=== PATIENT | female | born 1990 | race Caucasian/White ===

== ENCOUNTER 2019-10-11 21:56 | Emergency (ER) | payer OTHER ==
[~2019-10-11] VITALS: Ht 162 cm; Wt 68.1 kg
[~2019-10-11 21:56] MED LIST: CPR500T PO; HYDR1TAB PO
[2019-10-11 23:10] LABS: BASOPHILS # (AUTO) 0.1 10^3/uL (0.0-0.1); BASOPHILS % (AUTO) 1 % (0-10); EOSINOPHILS # (AUTO) 0.2 10^3/uL (0.0-0.3); EOSINOPHILS % (AUTO) 2 % (0-10); HEMATOCRIT 42 % (35-52); HEMOGLOBIN 14.3 G/DL (11.5-16.0); LYMPHOCYTES % (AUTO) 35 % (12-44); MEAN CORPUSCULAR HEMOGLOBIN 32 PG (25-34); MEAN CORPUSCULAR HGB CONC 34 G/DL (32-36); MEAN CORPUSCULAR VOLUME 93 FL (80-99); MEAN PLATELET VOLUME 9.6 FL (7.4-10.4); MONOCYTES # (AUTO) 0.7 X 10^3 (0.0-1.0); MONOCYTES % (AUTO) 6 % (0-12); NEUTROPHILS # (AUTO) 6.3 X 10^3 (1.8-7.8); NEUTROPHILS % (AUTO) 56 % (42-75); PLATELET COUNT 347 10^3/uL (130-400); RED CELL DISTRIBUTION WIDTH 12.7 % (10.0-14.5); WHITE BLOOD COUNT 11.3 10^3/uL (4.3-11.0)
[2019-10-11 23:10] LABS: BILIRUBIN,URINE NEGATIVE (NEGATIVE); CLARITY,URINE CLEAR; COLOR,URINE YELLOW; GLUCOSE, URINE (UA) NEGATIVE (NEGATIVE); KETONES,URINE NEGATIVE (NEGATIVE); LEUKOCYTE ESTERASE ,URINE NEGATIVE (NEGATIVE); NITRITE,URINE NEGATIVE (NEGATIVE); PH,URINE 6.5 (5-9); PROTEIN,URINE NEGATIVE (NEGATIVE)
--- OUTSIDE RECORDS SUMMARY | 2019-10-11 23:12 | XMS REPORT ---
Author Author Tiff Estrada Doctor Organization [facility] Address Unknown Phone Unavailable Care Team Providers Care Mechanical Integrity Specialist Name Role Phone Migration, Doctor Unavailable Unavailable PROBLEMS Type Condition ICD9-CM Code PFD43-LB Code Onset Dates Condition S tatus SNOMED Code Problem Other and unspecified diseases of the oral soft tissues 52 8.9 Active 30279945 Problem Periapical abscess without sinus 522.5 Active 883548610 Problem Screening examination for pulmonary tuberculosis V74.1 Active 547914474 Problem Health examination of defined subpopulation V70.5 Active 786314647 Problem STATE HEP A (ADULT) DX V05.3 Active 550177051 ALLERGIES No Information ENCOUNTERS Encounter Location Date Diagnosis [facility] [id number] [place] [id number] 16 May, 2016 Physical exam, pre-employment Z02.1 ; Sc reening for tuberculosis Z11.1 and Encounter for immunization Z23 [facility] [id number] [place] [id number] July, Encounter for PPD test V74.1 [facility] [address] [id number] [address] [place] [address] 14 Jun, 2014 [facility] [address] [facility] [id number] [address] [place] [address] 13 Jun, 2014 [facility] [address] [id number] [place] [id number] 10 May, 2013 [facility] [address] [facility] [id number] [address] [place] [address] May, [facility] [address] [id number] [place] [id number] Feb, [facility] [address] [facility] [id number] [address] [place] [phone] Feb, [facility] [address] [id number] [place] [id number] Sep, [facility] [address] [id number] [place] [id number] Aug, [facility] [address] [id number] [place] [id number] Mar, [facility] [address] [id number] [address] [place] [phone] Feb, [facility] [address] [id number] [address] [place] [address] Feb, [facility] [address] [id number] [address] [place] [address] Dec, [facility] [address] [id number] [address] [place] [address] Dec, [facility] [address] [facility] [id number] [address] [place] [address] Dec, [facility] [address] [id number] [address] [place] [address] Dec, [facility] [address] [facility] [id number] [address] [place] [address] Dec, IMMUNIZATIONS No Known Immunizations SOCIAL HISTORY Never Assessed REASON FOR VISIT PLAN OF CARE VITAL SIGNS MEDICATIONS No Known Medications RESULTS No Results PROCEDURES No Known procedures INSTRUCTIONS MEDICATIONS ADMINISTERED No Known Medications MEDICAL (GENERAL) HISTORY Type Description Date Medical History anxiety Medical History depression Medical History thyroid disorder Surgical History oopherectomy Surgical History section
--- OUTSIDE RECORDS SUMMARY | 2019-10-11 23:12 | XMS REPORT ---
Author Author Tiff Mackenzie [facility] Address [address] [place], [place] [id number] Care Team Providers Care Regional Rehabilitation Director Name Role Phone Beni Mackenzie PCP Beni Mackenzie PreferredProvider Allergies and Adverse Reactions Name Reaction Notes Vantin Keflex SULFA (SULFONAMIDES) Remeron Plan of Treatment Not available. Medications Active Name Start Date Estimated Completion Date SIG Co mments Estarylla 0.25-35 mg-mcg oral tablet take 1 tablet by oral route once daily Xanax 1 mg oral tablet take 0.5- 1 tablet (0.5mg-1 mg) by oral route 3 times per day as needed. Valium 2 mg oral tablet 04/05/2019 take 1 t ablet (2 mg) by oral route 3 times per day Discontinued Name Start Date Discontinued Date SIG Comments Xanax 1 mg oral tablet 04/05/2019 take 1 ta blet (1 mg) by oral route 3 times per day as needed. Linzess 72 mcg oral capsule 04/05/2019 take 1 capsule (72 mcg) by oral route once daily on an empty stomach at least 30 minutes before 1st meal of the day Problem List Description Status Onset Depression Active Anxiety Active Vital Signs Date Time BP-Sys(mm[Hg] BP-Jessica(mm[Hg]) HR(bpm) RR(rpm) Temp WT HT HC BMI BSA BMI Percentile O2 Sat(%) 04/05/2019 11:40:00 AM 115 mm[Hg] 84 mm[Hg] 77 {beats}/min 20 rpm 99 F 158 lbs 64 in 27.1204 kg/m2 1.7989 m2 100 % Social History Name Description Comments Tobacco Current every day smoker History of Procedures Not available. Results Summary Not available. History Of Immunizations Not available. History of Past Illness Name Date of Onset Comments Anxiety Depression Depression Apr 05 2019 11:43AM Anxiety Apr 05 2019 11:43AM Payers Insurance Name Company Name Plan Name Plan Number Policy Number [employer] Group Number Start Date [facility] [id number] N/A History of Encounters Visit Date Visit Type Provider 04/05/[address] Beni Mackenzie DO
--- OUTSIDE RECORDS SUMMARY | 2019-10-11 23:12 | XMS REPORT ---
Author Author Tiff Estrada Doctor Organization [facility] Address Unknown Phone Unavailable Care Team Providers Care Administrator Pesticide Name Role Phone Migration, Doctor Unavailable Unavailable PROBLEMS Type Condition ICD9-CM Code [id number] Code Onset Dates Condition S tatus SNOMED Code Problem Other and unspecified diseases of the oral soft tissues 52 8.9 Active 17732671 Problem Periapical abscess without sinus 522.5 Active 145360205 Problem Screening examination for pulmonary tuberculosis V74.1 Active 826322416 Problem Health examination of defined subpopulation V70.5 Active 171301678 Problem STATE HEP A (ADULT) DX V05.3 Active 468186890 ALLERGIES No Information ENCOUNTERS Encounter Location Date Diagnosis [address] [id number] May, Physical exam, pre-employment Z02.1 ; Screening for tuberculosis Z11.1 and Encounter for immunization Z23 [address] [id number] July, Encounter for PPD test V74.1 [facility] [address] [address] 14 Jun, 2014 [facility] [address] [address] Jun, [address] [id number] May, [facility] [address] [address] May, [address] [id number] Feb, [facility] [address] [address] Feb, [address] [id number] Sep, [address] [id number] Aug, [facility] [address] [id number] [place] [id number] Mar, [facility] [address] [id number] [place] [address] Feb, [facility] [address] [id number] [place] [address] Feb, [facility] [address] [id number] [place] [address] Dec, [facility] [address] [id number] [place] [address] Dec, [facility] [address] [id number] [place] [address] Dec, [facility] [address] [id number] [place] [address] Dec, [facility] [address] [id number] [place] [address] Dec, IMMUNIZATIONS No Known Immunizations SOCIAL HISTORY Never Assessed REASON FOR VISIT PLAN OF CARE VITAL SIGNS MEDICATIONS No Known Medications RESULTS No Results PROCEDURES No Known procedures INSTRUCTIONS MEDICATIONS ADMINISTERED No Known Medications MEDICAL (GENERAL) HISTORY Type Description Date Medical History anxiety Medical History depression Medical History thyroid disorder Surgical History oopherectomy Surgical History section
--- OUTSIDE RECORDS SUMMARY | 2019-10-11 23:12 | XMS REPORT ---
Author Author Tiff MEJIA [facility] Address [address] [place] [address] Care Team Providers Care Caustic Preparer Name Role Phone SUZETTE MEJIA Unavailable PROBLEMS Type Condition ICD9-CM Code XED53-CF Code Onset Dates Condition S tatus SNOMED Code Problem Periapical abscess without sinus 522.5 Active 492892283 Problem Other and unspecified diseases of the oral soft tissues 52 8.9 Active 97133630 Problem Screening examination for pulmonary tuberculosis V74.1 Active 979898866 Problem STATE HEP A (ADULT) DX V05.3 Active 075300910 Problem Health examination of defined subpopulation V70.5 Active 746123074 ALLERGIES Substance Reaction Event Type Date Status SulfADIAZINE nausea and vomiting Drug Allergy May, Active SOCIAL HISTORY Never Assessed PLAN OF CARE Activity Details Follow Up prn Reason: VITAL SIGNS Height 64 in 2016-05-22 Weight 175.0 lbs 2016-05-22 Temperature 97.6 degrees Fahrenheit 2016-05-22 Heart Rate 90 bpm 2016-05-22 Respiratory Rate 18 2016-05-22 BMI 30.04 kg/m2 2016-05-22 Blood pressure systolic 102 mmHg 2016-05-22 Blood pressure diastolic 68 mmHg 2016-05-22 MEDICATIONS Medication Instructions Dosage Frequency Start Date End Date Duration S tatus Zyprexa 2.5 MG Orally Once a day 1 tablet 24h Active Sprintec 28 0.25-35 MG-MCG Orally Once a day 1 tablet 24h Active Clonazepam 1 MG Orally Once a day 1 tablet 24h Active Xanax 0.5 MG Orally PRN 1 tablet Active RESULTS Name Result Date Reference Range URINE DRUG SCREEN (IN HOUSE) 2016-05-22 Lot # [id number] Exp date 07/06/17 Control positive COCAINE negative AMPH negative MTD negative THC negative OPIATE negative BENZO positive PCP negative BAR negative OXY negative MAMP negative TCA negative BUP negative MDMA negative PROCEDURES Procedure Date Ordered Result Body Site TB INTRADERMAL 2016-05-22 N/A DRUG TEST PRSMV DIR OPT OBS May 22, 2016 TB INTRADERMAL TEST May 22, 2016 SINGLE IMMUNIZATION ADMIN May 22, 2016 TDAP (BOOSTRIX) May 22, 2016 IMMUNIZATIONS Vaccine Route Administration Date Status TDAP (BOOSTRIX) IM Intramuscular May 22, 2016 Administered MEDICAL (GENERAL) HISTORY Type Description Date Medical History anxiety Medical History depression Medical History thyroid disorder Surgical History oopherectomy Surgical History section
--- OUTSIDE RECORDS SUMMARY | 2019-10-11 23:12 | XMS REPORT ---
Author Author Tiff Mackenzie [facility] Address [address] [place], [place] [address] Care Team Providers Care Program Review Director Name Role Phone Beni Mackenzie PCP [...] Number [employer] Group Number [facility] [id number] N/A History of Encounters Visit Date Visit Type Provider 04/05/[address] Beni Mackenzie DO
--- OUTSIDE RECORDS SUMMARY | 2019-10-11 23:12 | XMS REPORT ---
Author Author Tiff Estrada Doctor Organization [facility] Address Unknown Phone Unavailable Care Team Providers Care Accounting Officer Name Role Phone Migration, Doctor Unavailable Unavailable PROBLEMS Type Condition ICD9-CM Code ILY01-JC Code Onset Dates Condition S tatus SNOMED Code Problem Other and unspecified diseases of the oral soft tissues 52 8.9 Active 85568864 Problem Periapical abscess without sinus 522.5 Active 789872748 Problem Screening examination for pulmonary tuberculosis V74.1 Active 860046478 Problem Health examination of defined subpopulation V70.5 Active 725936579 Problem STATE HEP A (ADULT) DX V05.3 Active 121160276 ALLERGIES No Information ENCOUNTERS Encounter Location Date Diagnosis [address] [id number] May, Physical exam, pre-employment Z02.1 ; Screening for tuberculosis Z11.1 and Encounter for immunization Z23 [address] [id number] July, Encounter for PPD test V74.1 [facility] [address] [address] 14 Jun, 2014 [facility] [address] [address] Jun, [address] [id number] May, [facility] [address] [address] May, [address] [id number] Feb, [facility] [address] [address] Feb, [address] [id number] Sep, [address] [id number] Aug, [facility] [address] [id number] [place] [id number] Mar, [facility] [address] [facility]75[address] [place] [address] Feb, [facility] [address] [facility] [place] [address] Feb, [facility] [address] [id number] [place] [address] Dec, [facility] [address] [id number] [place] [address] Dec, [facility] [address] [id number] [place] [address] Dec, [facility] [address] [facility] [place] [address] Dec, [facility] [address] [facility] [place] [address] Dec, IMMUNIZATIONS No Known Immunizations SOCIAL HISTORY Never Assessed REASON FOR VISIT PLAN OF CARE VITAL SIGNS MEDICATIONS No Known Medications RESULTS No Results PROCEDURES Procedure Date Ordered Result Body Site TB INTRADERMAL TEST May 16, 2013 INSTRUCTIONS MEDICATIONS ADMINISTERED No Known Medications MEDICAL (GENERAL) HISTORY Type Description Date Medical History anxiety Medical History depression Medical History thyroid disorder Surgical History oopherectomy Surgical History section
--- OUTSIDE RECORDS SUMMARY | 2019-10-11 23:12 | XMS REPORT ---
Author Author Tiff Estrada Doctor Organization [facility] Address Unknown Phone Unavailable Care Team Providers Care Range Scientist Name Role Phone Migration, Doctor Unavailable Unavailable PROBLEMS Type Condition ICD9-CM Code VFP77-PX Code Onset Dates Condition S tatus SNOMED Code Problem Other and unspecified diseases of the oral soft tissues 52 8.9 Active 28096676 Problem Periapical abscess without sinus 522.5 Active 158054163 Problem Screening examination for pulmonary tuberculosis V74.1 Active 866502211 Problem Health examination of defined subpopulation V70.5 Active 341289166 Problem STATE HEP A (ADULT) DX V05.3 Active 697796399 ALLERGIES No Information ENCOUNTERS Encounter Location Date Diagnosis [facility] [id number] [place] [id number] 16 May, 2016 Physical exam, pre-employment Z02.1 ; Sc reening for tuberculosis Z11.1 and Encounter for immunization Z23 [facility] [id number] [place] [id number] July, Encounter for PPD test V74.1 [facility] [address] [id number] [address] [place] [address] 14 Jun, 2014 [facility] [address] [facility] [id number] [address] [place] [address] 13 Jun, 2014 [facility] [address] [id number] [place] [id number] 10 May, 2013 [facility] [address] [facility] [id number] [address] [place] [address] May, [facility] [address] [facility] [id number] [place] [id number] Feb, [facility] [address] [facility] [id number] [address] [place] [address] Feb, [facility] [address] [id number] [place] [id number] Sep, [facility] [address] [id number] [place] [id number] Aug, [facility] [address] [id number] [place] [id number] Mar, [facility] [address] [id number] [address] [place] [address] Feb, [facility] [address] [id number] [address] [place] [address] Feb, [facility] [address] [id number] [address] [place] [address] Dec, [facility] [address] [id number] [address] [place] [address] Dec, [facility] [address] [facility] [id number] [address] [place] [address] Dec, [facility] [address] [id number] [address] [place] [address] Dec, [facility] [address] [id number] [address] [place] [address] Dec, IMMUNIZATIONS No Known Immunizations SOCIAL HISTORY Never Assessed REASON FOR VISIT [facility] PLAN OF CARE VITAL SIGNS MEDICATIONS No Known Medications RESULTS No Results PROCEDURES No Known procedures INSTRUCTIONS MEDICATIONS ADMINISTERED No Known Medications MEDICAL (GENERAL) HISTORY Type Description Date Medical History anxiety Medical History depression Medical History thyroid disorder Surgical History oopherectomy Surgical History section
--- OUTSIDE RECORDS SUMMARY | 2019-10-11 23:12 | XMS REPORT ---
Author Author Tiff TAYLOR [address] Address [address] [place] [address] Care Team Providers Care Ammonia Refrigeration Worker Name Role Phone CHRISTEN TAYLOR Unavailable PROBLEMS Type Condition ICD9-CM Code ATS50-WV Code Onset Dates Condition S tatus SNOMED Code Problem Other and unspecified diseases of the oral soft tissues 52 8.9 Active 84201998 Problem Periapical abscess without sinus 522.5 Active 906770967 Problem Screening examination for pulmonary tuberculosis V74.1 Active 186979020 Problem Health examination of defined subpopulation V70.5 Active 273918814 Problem STATE HEP A (ADULT) DX V05.3 Active 711133759 ALLERGIES No Information ENCOUNTERS Encounter Location Date Diagnosis [facility] [id number] [place] [id number] May, Physical exam, pre-employment Z02.1 ; Sc reening for tuberculosis Z11.1 and Encounter for immunization Z23 [facility] [id number] [place] [id number] July, Encounter for PPD test V74.1 [facility] [address] [id number] [address] [place] [address] 14 Jun, 2014 [facility] [address] [id number] [address] [place] [address] 13 Jun, 2014 [facility] [id number] [place] [id number] 10 May, 2013 [facility] [address] [id number] [address] [place] [address] May, [facility] [id number] [place] [id number] Feb, [facility] [address] [id number] [address] [place] [address] Feb, [facility] [address] [id number] [place], [place] [id number] Sep, [facility] [address] [id number] [place] [id number] Aug, [facility] [address] [id number] [place], [place] [id number] Mar, [facility] [address] [id number] [address] [place] [address] Feb, [facility] [address] [id number] [address] [place] [address] Feb, [facility] [address] [id number] [address] [place] [address] Dec, [facility] [address] [id number] [address] [place] [address] Dec, [facility] [address] [id number] [address] [place] [address] Dec, [facility] [address] [id number] [address] [place] [address] Dec, [facility] [address] [id number] [address] [place] [address] Dec, IMMUNIZATIONS No Known Immunizations SOCIAL HISTORY Never Assessed REASON FOR VISIT PLAN OF CARE VITAL SIGNS Height 66 in 2012-08-13 Weight 192 lbs 2012-08-13 Temperature 99.6 degrees Fahrenheit 2012-08-13 Heart Rate 68 bpm 2012-08-13 Respiratory Rate 16 2012-08-13 Blood pressure systolic 120 mmHg 2012-08-13 Blood pressure diastolic 80 mmHg 2012-08-13 MEDICATIONS No Known Medications RESULTS No Results PROCEDURES Procedure Date Ordered Result Body Site TB INTRADERMAL TEST August 13, 2012 DRUG SCREEN, QUALITATE/MULTI August 13, 2012 INSTRUCTIONS MEDICATIONS ADMINISTERED No Known Medications MEDICAL (GENERAL) HISTORY Type Description Date Medical History anxiety Medical History depression Medical History thyroid disorder Surgical History oopherectomy Surgical History section
--- OUTSIDE RECORDS SUMMARY | 2019-10-11 23:12 | XMS REPORT ---
Author Author Tiff Estrada Doctor Organization [facility] Address Unknown Phone Unavailable Care Team Providers Care Soil Sort Worker Name Role Phone Migration, Doctor Unavailable Unavailable PROBLEMS Type Condition ICD9-CM Code EWJ27-TX Code Onset Dates Condition S tatus SNOMED Code Problem Other and unspecified diseases of the oral soft tissues 52 8.9 Active 50937188 Problem Periapical abscess without sinus 522.5 Active 017219941 Problem Screening examination for pulmonary tuberculosis V74.1 Active 825592522 Problem Health examination of defined subpopulation V70.5 Active 163000958 Problem STATE HEP A (ADULT) DX V05.3 Active 983788286 ALLERGIES No Information ENCOUNTERS Encounter Location Date Diagnosis [facility] [id number] [place] [id number] 16 May, 2016 Physical exam, pre-employment Z02.1 ; Sc reening for tuberculosis Z11.1 and Encounter for immunization Z23 [facility] [id number] [place] [id number] July, Encounter for PPD test V74.1 [facility] [address] [id number] [address] [place] [address] 14 Jun, 2014 [facility] [address] [facility] [id number] [address] [place] [address] 13 Jun, 2014 [facility] [address] [id number] [place] [id number] 10 May, 2013 [facility] [address] [facility] [id number] [address] [place] [address] May, [facility] [address] [facility] [id number] [place] [id number] Feb, [facility] [address] [facility] [id number] [address] [place] [address] Feb, [facility] [address] [id number] [place] [id number] Sep, [facility] [address] [id number] [place] [id number] Aug, [facility] [address] [id number] [place] [id number] Mar, [facility] [address] [id number] [address] [place] [address] Feb, [facility] [address] [id number] [address] [place] [address] Feb, [facility] [address] [id number] [address] [place] [address] Dec, [facility] [address] [id number] [address] [place] [address] Dec, [facility] [address] [id number] [address] [place] [address] Dec, [facility] [address] [id number] [address] [place] [address] Dec, [facility] [address] [id number] [address] [place] [address] Dec, IMMUNIZATIONS No Known Immunizations SOCIAL HISTORY Never Assessed REASON FOR VISIT [facility] PLAN OF CARE VITAL SIGNS MEDICATIONS Medication Instructions Dosage Frequency Start Date End Date Duration S tatus Amoxicillin 500 mg SI cap(s) orally 2 times a day for 10 day(s) Mar, Active RESULTS No Results PROCEDURES No Known procedures INSTRUCTIONS MEDICATIONS ADMINISTERED No Known Medications MEDICAL (GENERAL) HISTORY Type Description Date Medical History anxiety Medical History depression Medical History thyroid disorder Surgical History oopherectomy Surgical History section
--- OUTSIDE RECORDS SUMMARY | 2019-10-11 23:12 | XMS REPORT ---
Author Author Tiff Mackenzie [facility] Address [address] [place], [place] [id number] Care Team Providers Care Manager Category Name Role Phone Beni Mackenzie PCP Beni [...] Number Anders cy Group Number Start Date [facility] [id number] N/A History of Encounters Visit Date Visit Type Provider 04/05/[address] Beni Mackenzie DO
--- OUTSIDE RECORDS SUMMARY | 2019-10-11 23:12 | XMS REPORT | Continuity of Care Document ---
Author Organization Unknown Address Unknown Phone Unavailable Allergies Active Description Code Type Severity Reaction Onset Reported/Identified Relationship to Patient Clinical Status Yes Keflex Drug Allergy N/A N/A 12/16/2010 Medications There is no data. Problems Date Dx Coded Attending Type Code Diagnosis Diagnosed By 12/16/2010 599.0 URIN DANNY TRACT INFECTION 12/16/2010 DIA LAURENT MD 599. 0 URINARY TRACT INFECTION 12/16/2010 CHRISTEN TAYLOR APRN 599.0 URINARY TRACT INFECTION 12/19/2010 599.72 MELODY ROSCOPIC HEMATURIA 12/19/2010 724.5 BACK ACHE UNSPECIFIED 12/19/2010 DIA LAURENT MD 599. 72 MICROSCOPIC HEMATURIA 12/19/2010 DIA LAURENT MD 724. 5 BACKACHE UNSPECIFIED 12/19/2010 CHRISTEN TAYLOR APRN 599.72 MICROSCOPIC HEMATURIA 12/19/2010 CHRISTEN TYALOR APRN 724.5 BACKACHE UNSPECIFIED 12/27/2010 592.9 URIN DANNY CALCULUS UNSPECIFIED 12/27/2010 620.2 OTHE R AND UNSPECIFIED OVARIAN CYST 12/27/2010 DIA LAURENT MD 592. 9 URINARY CALCULUS UNSPECIFIED 12/27/2010 DIA LAURENT MD 620. 2 OTHER AND UNSPECIFIED OVARIAN CYST 12/27/2010 CHRISTEN TAYLOR APRN 592.9 URINARY CALCULUS UNSPECIFIED 12/27/2010 CHRISTEN TAYLOR APRN 620.2 OTHER AND UNSPECIFIED OVARIAN CYST 03/11/2011 522.5 COLLEEN APICAL ABSCESS WITHOUT SINUS 03/11/2011 528.9 MOUT H PAIN 03/11/2011 DIA LAURENT MD 522. 5 PERIAPICAL ABSCESS WITHOUT SINUS 03/11/2011 DIA LAURENT MD 528. 9 MOUTH PAIN 03/11/2011 CHRISTEN TAYLOR APRN 522.5 PERIAPICAL ABSCESS WITHOUT SINUS 03/11/2011 CHRISTEN TAYLOR APRN 528.9 MOUTH PAIN 08/13/2012 V70.5 PREEMPLOYMENT/PRESCHOOL EXAM 08/13/2012 DIA LAURENT MD V70. 5 PREEMPLOYMENT/PRESCHOOL EXAM 08/13/2012 CHRISTEN TAYLOR APRN V70.5 PREEMPLOYMENT/PRESCHOOL EXAM 09/15/2012 DIA LAURENT MD V05. 3 HEP B (ADULT) DX 09/15/2012 CHRISTEN TAYLOR APRN V05.3 HEP B (ADULT) DX 05/16/2013 CHRISTEN TAYLOR APRN V74.1 SCREENING EXAMINATION FOR PULMONARY TUBERCULOSIS Procedures Code [place] [address] URIN E DRUG SCREEN (IN-HOUSE) 08/13/2012 73322 TB T EST INTRADERMAL 08/13/2012 00961 TB T EST INTRADERMAL 05/16/2013 Results There is no data. Encounters ACCT No. Visit Date/Time Discharge Status Pt. Type Provider Facility Loc./Unit Complaint [id number] 04/05/2019 12:13:40 04/05/2019 23:59: 59 CLS Outpatient Beni Mackenzie [id number] 05/16/2013 16:30:00 05/16/2013 23:59: 59 CLS Outpatient CHRISTEN TAYLOR APRN [id number] 02/21/2013 16:40:00 02/21/2013 23:59: 59 CLS Outpatient DIA LAURENT MD [id number] 08/13/2012 15:22:00 Document Registration [id number] 10/11/2019 22:01:[address] Emergency TIFF HARVEY DO [facility] CONFUSION,NAUSEA,DISSYNESS,B KSUH ACHES
[2019-10-11 23:16] LABS: BACTERIA,URINE MODERATE /HPF
[2019-10-11 23:22] LABS: AMPHETAMINE SCREEN, URINE NEGATIVE (NEGATIVE); BARBITURATE SCREEN URINE NEGATIVE (NEGATIVE); BENZODIAZEPINES SCREEN URINE POSITIVE (NEGATIVE); CANNABINOID SCREEN, URINE NEGATIVE (NEGATIVE); COCAINE SCREEN URINE NEGATIVE (NEGATIVE); METHADONE STAT NEGATIVE (NEGATIVE); METHAMPHETAMINE SCREEN URINE S NEGATIVE (NEGATIVE); OPIATE SCREEN URINE NEGATIVE (NEGATIVE); OXYCODONE STAT NEGATIVE (NEGATIVE); PROPOXYPHENE STAT NEGATIVE (NEGATIVE); TRICYCLIC ANTIDEPRESSANTS SCRE NEGATIVE (NEGATIVE)
[2019-10-11 23:36] LABS: INR 0.9 (0.8-1.4); PROTHROMBIN TIME PATIENT 12.5 SEC (12.2-14.7)
[2019-10-11 23:38] LABS: ALANINE AMINOTRANSFERASE 13 U/L (0-55); ALBUMIN 4.8 GM/DL (3.2-4.5); ALKALINE PHOSPHATASE 64 U/L (40-136); BILIRUBIN,TOTAL 0.7 MG/DL (0.1-1.0); BUN/CREATININE RATIO 13; CALCIUM 9.6 MG/DL (8.5-10.1); CARBON DIOXIDE 23 MMOL/L (21-32); CHLORIDE 104 MMOL/L (98-107); CREATINE KINASE 58 U/L (29-168); CREATININE SERUM 0.83 MG/DL (0.60-1.30); GFR ESTIMATED > 60; GLUCOSE 87 MG/DL (70-105); POTASSIUM 3.8 MMOL/L (3.6-5.0); SODIUM 140 MMOL/L (135-145)
[2019-10-11 23:58] LABS: CREATINE KINASE MB 0.5 NG/ML (<6.6); TSH (THYROID ANALYZER) 3.25 UIU/ML (0.35-4.94)
--- NOTE | 2019-10-12 00:57 | ED General ---
General Chief Complaint: General Problems/Pain Stated Complaint: CONFUSION,NAUSEA,DISSYNESS,BODY ACHES Nursing Triage Note: pt has felt dizzy and lighthead off and on for 3 weeks. she reports anxiety and some CP , went to [facility] and given omeperazole for gastritis. Pt also reports some increased stressors in her life. Nursing Sepsis Screen: No Definite Risk Allergies and Home Medications Allergies Coded Allergies: Cephalexin Monohydrate (Unverified Adverse Reaction, Intermediate, HIVES, 05/05/12) Uncoded Allergies: COTRIM (Adverse Reaction, Intermediate, VOMITING, 05/05/12) Home Medications Ciprofloxacin 500 Mg Tablet, 1 TAB PO BID, (Reported) Hydrocodone Bit/Acetaminophen 1 Each Tablet, 1-2 EACH PO Q4HR PRN Prescribed by: VIRI CHIN on 12/20/102201 Past Vmigjmc-Kjhdhh-Xfnsls Hx Patient Social History Alcohol Use: Occasionally Uses Recreational Drug Use: No Smoking Status: Former Smoker Former Smoker, Quit: Sep 20, 2019 2nd Hand Smoke Exposure: Yes Recent Foreign Travel: No Contact w/Someone Who Travel: No Recent Infectious Disease Expo: No Recent Hopitalizations: Yes (seen at [facility] for gastroenteritis) Physical Abuse: No Sexual Abuse: No Mistreated: No Fear: No Immunizations Up To Date Tetanus Booster (TDap): Unknown Seasonal Allergies Seasonal Allergies: No Past Medical History Surgeries: Yes Abdominal, Breast, Section, Tubal Ligation Respiratory: No Cardiac: No Neurological: No Genitourinary: No Gastrointestinal: No Musculoskeletal: No Endocrine: No HEENT: No Cancer: No Psychosocial: Yes Anxiety, Depression Integumentary: No Blood Disorders: No Physical Exam Vital Signs Vital Signs - First Documented 10/11/19 22:50 Temp 36.9 Pulse 96 Resp 18 B/P (MAP) 139/87 (104) Capillary Refill : Less Than 3 Seconds Height, Weight, BMI Height: '" Weight: lbs. oz. kg; 25.00 BMI Method: Progress/Results/Core Measures Suspected Sepsis Recent Fever Within 48 Hours: No Infection Criteria Present: None New/Unexplained Altered Menta: Yes Sepsis Screen: No Definite Risk SIRS Temperature: Pulse: 96 Respiratory Rate: 18 Laboratory Tests 10/11/19 22:55: White Blood Count 11.3H Blood Pressure 139 /87 Mean: 104 Laboratory Tests 10/11/19 22:55: Creatinine 0.83, INR Comment 0.9, Platelet Count 347, Total Bilirubin 0.7 Results/Orders Lab Results Laboratory Tests Test 10/11/19 22:55 10/11/19 23:00 Range/Units White Blood Count 11.3 H 4.3-11.0 10^3/uL Red Blood Count 4.51 4.35-5.85 10^6/uL Hemoglobin 14.3 11.5-16.0 G/DL Hematocrit 42 35-52 % Mean Corpuscular Volume 93 80-99 FL Mean Corpuscular Hemoglobin 32 25-34 PG Mean Corpuscular Hemoglobin Concent 34 32-36 G/DL Red Cell Distribution Width 12.7 10.0-14.5 % Platelet Count 347 130-400 10^3/uL Mean Platelet Volume 9.6 7.4-10.4 FL Neutrophils (%) (Auto) 56 42-75 % Lymphocytes (%) (Auto) 35 12-44 % Monocytes (%) (Auto) 6 0-12 % Eosinophils (%) (Auto) 2 0-10 % Basophils (%) (Auto) 1 0-10 % Neutrophils # (Auto) 6.3 1.8-7.8 X 10^3 Lymphocytes # (Auto) 4.0 1.0-4.0 X 10^3 Monocytes # (Auto) 0.7 0.0-1.0 X 10^3 Eosinophils # (Auto) 0.2 0.0-0.3 10^3/uL Basophils # (Auto) 0.1 0.0-0.1 10^3/uL Prothrombin Time 12.5 12.2-14.7 SEC INR Comment 0.9 0.8-1.4 Activated Partial Thromboplast Time 31 24-35 SEC Sodium Level 140 135-145 MMOL/L Potassium Level 3.8 3.6-5.0 MMOL/L Chloride Level 104 98-107 MMOL/L Carbon Dioxide Level 23 21-32 MMOL/L Anion Gap 13 5-14 MMOL/L Blood Urea Nitrogen 11 7-18 MG/DL Creatinine 0.83 0.60-1.30 MG/DL Estimat Glomerular Filtration Rate > 60 BUN/Creatinine Ratio 13 Glucose Level 87 70-105 MG/DL Calcium Level 9.6 8.5-10.1 MG/DL Corrected Calcium 8.5-10.1 MG/DL Magnesium Level 2.0 1.6-2.4 MG/DL Total Bilirubin 0.7 0.1-1.0 MG/DL Aspartate Amino Transf (AST/SGOT) 15 5-34 U/L Alanine Aminotransferase (ALT/SGPT) 13 0-55 U/L Alkaline Phosphatase 64 40-136 U/L Total Creatine Kinase 58 29-168 U/L Creatine Kinase MB 0.5 <6.6 NG/ML Myoglobin 24.9 10.0-92.0 NG/ML Troponin I < 0.028 <0.028 NG/ML Total Protein 8.0 6.4-8.2 GM/DL Albumin 4.8 H 3.2-4.5 GM/DL TSH [place] Testing 3.25 0.35-4.94 UIU/ML Serum Test, Qualitative NEGATIVE NEGATIVE Serum Alcohol < 10 <10 MG/DL Urine Color YELLOW Urine Clarity CLEAR Urine pH 6.5 5-9 Urine Specific Comfort 1.010 L 1.016-1.022 Urine Protein NEGATIVE NEGATIVE Urine Glucose (UA) NEGATIVE NEGATIVE Urine Ketones NEGATIVE NEGATIVE Urine Nitrite NEGATIVE NEGATIVE Urine Bilirubin NEGATIVE NEGATIVE Urine Urobilinogen 0.2 < = 1.0 MG/DL Urine Leukocyte Esterase NEGATIVE NEGATIVE Urine RBC (Auto) 2+ H NEGATIVE Urine RBC 2-5 H /HPF Urine WBC 2-5 /HPF Urine Squamous Epithelial Cells 5-10 /HPF Urine Crystals NONE /LPF Urine Bacteria MODERATE H /HPF Urine Casts NONE /LPF Urine Mucus NEGATIVE /LPF Urine Culture Indicated YES Urine Opiates Screen NEGATIVE NEGATIVE Urine Oxycodone Screen NEGATIVE NEGATIVE Urine Methadone Screen NEGATIVE NEGATIVE Urine Propoxyphene Screen NEGATIVE NEGATIVE Urine Barbiturates Screen NEGATIVE NEGATIVE Ur Tricyclic Antidepressants Screen NEGATIVE NEGATIVE Urine Phencyclidine Screen NEGATIVE NEGATIVE Urine Amphetamines Screen NEGATIVE NEGATIVE Urine Methamphetamines Screen NEGATIVE NEGATIVE Urine Benzodiazepines Screen POSITIVE H NEGATIVE Urine Cocaine Screen NEGATIVE NEGATIVE Urine Cannabinoids Screen NEGATIVE NEGATIVE My Orders Orders - HELEN HARVEY DO Ed Iv/Invasive Line Start (10/11/19 22:53) Ekg Tracing (10/11/19 22:53) Monitor-Rhythm Ecg Trace Only (10/11/19 22:53) Alcohol (10/11/19 22:53) Cbc With Automated Diff (10/11/19 22:53) Comprehensive Metabolic Panel (10/11/19 22:53) Creatine Kinase (10/11/19 22:53) Creatine Kinase Mb (10/11/19 22:53) Drug Screen Stat (Urine) (10/11/19 22:53) Hcg,Qualitative Serum (10/11/19 22:53) Magnesium (10/11/19 22:53) Protime With Inr (10/11/19 22:53) Partial Thromboplastin Time (10/11/19 22:53) Thyroid Analyzer (10/11/19 22:53) Ua Culture If Indicated (10/11/19 22:53) Myoglobin Serum (10/11/19 22:53) Troponin I (10/11/19 22:53) Urine Culture (10/11/19 23:00) Hcg,Qualitative Serum (10/11/19 23:28) Ct Head/Cervical Spine Wo (10/12/19 00:01) Vital Signs/I&O 10/11/19 22:50 Temp 36.9 Pulse 96 Resp 18 B/P (MAP) 139/87 (104) Capillary Refill : Less Than 3 Seconds Blood Pressure Mean: 104 Departure Impression Primary Impression: Anxiety Additional Impression: UTI (urinary tract infection) Disposition: HOME, SELF-CARE Condition: Improved Departure-Patient Inst. Patient Instructions: Urinary Tract Infection, Adult (DC), Anxiety, Adult (DC) Add. Discharge Instructions: HOME, REST TAKE YOUR XANAX 1-2 TIMES A DAY EVERY DAY FOLLOW UP WITH YOUR [facility] REGARDING SPIRONOLACTONE FOLLOW UP WITH YOUR FAMILY THIS WEEK FOR FURTHER CARE REGARDING ANXIETY AND RECHECK UTI All discharge instructions reviewed with patient and/or family. Voiced understanding. Scripts Nitrofurantoin Monohyd/M-Cryst (Macrobid 100 mg Capsule) 100 Mg Capsule 1 TAB PO BID, #20 CAP Prov: HELEN HARVEY DO 10/12/19 HELEN HARVEY DO Oct 12, 2019 00:56
[2019-10-12] MEDS ORDERED: NITR-65 PO (01:07)
[2019-10-12 01:40] VITALS: BP 121/75
--- NOTE | 2019-10-12 07:01 | Diagnostic Imaging Report ---
PROCEDURE: CT head and CT cervical spine without contrast. TECHNIQUE: Multiple contiguous axial images were obtained through the brain and cervical spine without the use of intravenous contrast. Sagittal and coronal reformations through the cervical spine were then performed. Auto Exposure Controls were utilized during the CT exam to meet ALARA standards for radiation dose reduction. INDICATION: Dizziness. Lightheaded. The ventricles and cortical gyral pattern are normal. There is no intracranial hemorrhage or mass effect. No extra-axial fluid collection. Basal cisterns are clear. Mastoid air cells and paranasal sinuses are clear. No evidence of calvarial fracture. IMPRESSION: Negative CT head without contrast. CT cervical spine: Good alignment of the vertebral bodies. Facets show good alignment. There are no fractures. No significant degenerative changes are demonstrated. Surrounding soft tissues are normal. IMPRESSION: Negative CT cervical spine. Dictated by: Dictated on workstation # [id number]
== END 2019-10-12 01:42 | disposition home or self-care (01) ==
LOC: EDUNIT# 21:56 → ER 22:01
DX: F41.9 Anxiety disorder, unspecified (principal); N39.0 Urinary tract infection, site not specified; Z88.1 Allergy status to other antibiotic agents; Z87.891 Personal history of nicotine dependence; Z98.51 Tubal ligation status
CPT/HCPCS: 70450; 72125; 80053; 80306; 81000; 82550; 82553; 83735; 83874; 84443; 84484; 84703; 85025; 85610; 85730; 87088; 93005; 93041; 99284; G0480; 36415; 80320

== ENCOUNTER 2022-10-21 12:26 | Emergency (ER) | payer OTHER ==
[~2022-10-21] VITALS: Ht 162 cm; Wt 71.0 kg
[~2022-10-21 12:26] MED LIST changes: +NITR-65 PO
[2022-10-21] MEDS ORDERED: VYVANSE (12:47)
[2022-10-21] MEDS ORDERED: MELOXICAM (12:48)
--- NOTE | 2022-10-21 12:54 | ED General ---
General Chief Complaint: Allergic Reaction Stated Complaint: ALLERGIC REACTION Nursing Triage Note: PT STATES HIVES YESTERDAY AFTERNOON NO KNOWN CAUSE, ITCHING LAST NIGHT, AUTOIMMUNE ISSUES, DIFFICULTY SWALLOWING WAS SEEN AT [facility] WITH NO MEDS GIVEN PT CAME HERE FOR SECOND OPINION. PEPCID TAKEN TODAY AT HOME AND BENADRYL YESTERDAY Source of Information: Patient Exam Limitations: No Limitations History of Present Illness Date Seen by Provider: Oct 21, 2022 Time Seen by Provider: 12:36 Allergies and Home Medications Allergies Coded Allergies: Sulfa (Sulfonamide Antibiotics) (Verified Allergy, Unknown, 10/21/22) cefpodoxime (Verified Allergy, Unknown, 10/21/22) doxycycline (Verified Allergy, Unknown, 10/21/22) latex (Verified Allergy, Unknown, 10/21/22) mirtazapine (Verified Allergy, Unknown, 10/21/22) Cephalexin Monohydrate (Unverified Adverse Reaction, Intermediate, HIVES, 05/05/12) Uncoded Allergies: COTRIM (Adverse Reaction, Intermediate, VOMITING, 05/05/12) Patient Home Medication List Ciprofloxacin (Cipro) 500 Mg Tablet, 1 TAB PO BID, (Reported) Entered as Reported by: TIEN SMITH on 12/20/10 1950 Hydrocodone Bit/Acetaminophen (Vicodin 5-500 Tablet) 1 Each Tablet, 1-2 EACH PO Q4HR PRN Prescribed by: VIRI CHIN on 12/20/102201 Nitrofurantoin Monohyd/M-Cryst (Macrobid 100 mg Capsule) 100 Mg Capsule, 1 TAB PO BID Prescribed by: HELEN HARVEY on 10/12/19 0107 [Meloxicam] , (Reported) Entered as Reported by: RENITA JIMENEZ on 10/21/22 1248 Last Action: New Order [Vyvanse] , (Reported) Entered as Reported by: RENITA JIMENEZ on 10/21/22 1247 Last Action: New Order Past Qpqelwa-Icqexi-Aevztn Hx Patient Social History Tobacco Use?: Yes Tobacco type used: Cigarettes Smoking Status: Current Everyday Smoker Substance use?: No Alcohol Use?: Yes Alcohol Frequency: Rarely Immunizations Up To Date Tetanus Booster (TDap): Unknown Seasonal Allergies Seasonal Allergies: No Past Medical History Surgery/Hospitalization HX: C SECTION, BREAST IMPLANTS AND REMOVAL, PARTIAL HYST Surgeries: Yes Abdominal, Breast, Section, Tubal Ligation Respiratory: No Cardiac: No Neurological: No Genitourinary: No Gastrointestinal: No Musculoskeletal: No Endocrine: No HEENT: No Cancer: No Psychosocial: Yes Anxiety, Depression Integumentary: No Blood Disorders: No Physical Exam Vital Signs Vital Signs - First Documented 10/21/22 12:37 Temp 36.3 Pulse 84 Resp 20 B/P (MAP) 132/89 (103) Pulse Ox 100 O2 Delivery Room Air Capillary Refill : Less Than 3 Seconds Height, Weight, BMI Height: '" Weight: lbs. oz. kg; 27.00 BMI Method: Progress/Results/Core Measures Suspected Sepsis SIRS Temperature: Pulse: 84 Respiratory Rate: 20 Laboratory Tests 10/21/22 12:55: White Blood Count 8.7 Blood Pressure 132 /89 Mean: 103 Laboratory Tests 10/21/22 12:55: Creatinine 0.73, Platelet Count 337, Total Bilirubin 0.5 Results/Orders Lab Results Laboratory Tests Test 10/21/22 12:55 Range/Units White Blood Count 8.7 4.3-11.0 10^3/uL Red Blood Count 4.30 3.80-5.11 10^6/uL Hemoglobin 13.7 11.5-16.0 g/dL Hematocrit 41 35-52 % Mean Corpuscular Volume 94 80-99 fL Mean Corpuscular Hemoglobin 32 25-34 pg Mean Corpuscular Hemoglobin Concent 34 32-36 g/dL Red Cell Distribution Width 12.6 10.0-14.5 % Platelet Count 337 130-400 10^3/uL Mean Platelet Volume 9.4 9.0-12.2 fL Immature Granulocyte % (Auto) 0 % Neutrophils (%) (Auto) 64 42-75 % Lymphocytes (%) (Auto) 29 12-44 % Monocytes (%) (Auto) 5 0-12 % Eosinophils (%) (Auto) 1 0-10 % Basophils (%) (Auto) 1 0-10 % Neutrophils # (Auto) 5.6 1.8-7.8 10^3/uL Lymphocytes # (Auto) 2.5 1.0-4.0 10^3/uL Monocytes # (Auto) 0.4 0.0-1.0 10^3/uL Eosinophils # (Auto) 0.0 0.0-0.3 10^3/uL Basophils # (Auto) 0.1 0.0-0.1 10^3/uL Immature Granulocyte # (Auto) 0.0 0.0-0.1 10^3/uL Erythrocyte Sedimentation Rate 4 0-20 MM/HR Sodium Level 139 135-145 MMOL/L Potassium Level 3.8 3.6-5.0 MMOL/L Chloride Level 106 98-107 MMOL/L Carbon Dioxide Level 22 21-32 MMOL/L Anion Gap 11 5-14 MMOL/L Blood Urea Nitrogen 8 7-18 MG/DL Creatinine 0.73 0.60-1.30 MG/DL Estimat Glomerular Filtration Rate 111 BUN/Creatinine Ratio 11 Glucose Level 84 70-105 MG/DL Calcium Level 9.2 8.5-10.1 MG/DL Corrected Calcium 8.8 8.5-10.1 MG/DL Total Bilirubin 0.5 0.1-1.0 MG/DL Aspartate Amino Transf (AST/SGOT) 19 5-34 U/L Alanine Aminotransferase (ALT/SGPT) 18 0-55 U/L Alkaline Phosphatase 59 40-136 U/L C-Reactive Protein High Sensitivity 0.04 0.00-0.50 MG/DL Total Protein 7.7 6.4-8.2 GM/DL Albumin 4.5 3.2-4.5 GM/DL TSH [place] Testing 1.38 0.35-4.94 UIU/ML Serum Test, Qualitative NEGATIVE NEGATIVE My Orders Orders - ELIF BAIRD MD Cbc With Automated Diff (10/21/22 12:52) Comprehensive Metabolic Panel (10/21/22 12:52) Hs C Reactive Protein (10/21/22 12:52) Hcg,Qualitative Serum (10/21/22 12:52) Thyroid Analyzer (10/21/22 12:52) Erythrocyte Sedimentation Rate (10/21/22 12:52) Ed Iv/Invasive Line Start (10/21/22 12:52) Loratadine Tablet (Loratadine Tablet) (10/21/22 13:00) Tick Panel With Lyme Eia (10/21/22 14:15) Medications Given in ED Current Medications Medications Dose Ordered Sig/Callum Route Start Time Stop Time Status Last Admin Dose Admin Loratadine 10 mg ONCE ONCE PO 10/21/22 13:00 10/21/22 13:01 DC 10/21/22 13:22 10 MG Vital Signs/I&O 8/15/23 12:37 Temp 36.3 Pulse 84 Resp 20 B/P (MAP) 132/89 (103) Pulse Ox 100 O2 Delivery Room Air Capillary Refill : Less Than 3 Seconds Blood Pressure Mean: 103 Departure Impression Primary Impression: Rash Additional Impression: Arthralgia Qualified Codes: M25.50 - Pain in unspecified joint Disposition: 01 HOME, SELF-CARE Condition: Stable Departure-Patient Inst. Decision time for Depature: 14:30 Referrals: NAE CRISOSTOMO APRN (PCP/Family) Primary Care Physician Patient Instructions: Skin Rash, Joint Pain Add. Discharge Instructions: You may continue taking antihistamine to treat hives and rash. I would suggest using a nondrowsy antihistamine during the day such as Pepcid or Claritin (jose tadine) and Benadryl (diphenhydramine) in the evening. You may use Benadryl (diphenhydramine) up to 50 mg every 4 hours as needed for more severe reactions. Rash may have been caused by Mobic (meloxicam). If rash does not return after stopping Mobic, add Mobic to your allergy list. If you persistently have symptoms despite stopping Mobic and taking antihistamines, consider starting to the prednisone prescription as prescribed. Your tick panel should be available in 4 5 days. Please review this with your primary care provider. Return to care if you have worsening symptoms despite following these instructions. All discharge instructions reviewed with patient and/or family. Voiced understanding. Scripts Prednisone (Prednisone) 10 Mg Tab 1 TAB PO DAILY PRN for RASH, #5 TAB Prov: ELIF BAIRD MD 10/21/22 ELIF BAIRD MD Oct 21, 2022 12:54
[2022-10-21] MEDS ORDERED: LORATADINE 10 MG TABLET PO ONE (13:00)
[2022-10-21 13:05] LABS: BASOPHILS # (AUTO) 0.1 10^3/uL (0.0-0.1); BASOPHILS % (AUTO) 1 % (0-10); EOSINOPHILS % (AUTO) 1 % (0-10); HEMATOCRIT 41 % (35-52); HEMOGLOBIN 13.7 g/dL (11.5-16.0); LYMPHOCYTES # (AUTO) 2.5 10^3/uL (1.0-4.0); LYMPHOCYTES % (AUTO) 29 % (12-44); MEAN CORPUSCULAR HEMOGLOBIN 32 pg (25-34); MEAN CORPUSCULAR HGB CONC 34 g/dL (32-36); MEAN CORPUSCULAR VOLUME 94 fL (80-99); MEAN PLATELET VOLUME 9.4 fL (9.0-12.2); MONOCYTES # (AUTO) 0.4 10^3/uL (0.0-1.0); MONOCYTES % (AUTO) 5 % (0-12); NEUTROPHILS # (AUTO) 5.6 10^3/uL (1.8-7.8); NEUTROPHILS % (AUTO) 64 % (42-75); PLATELET COUNT 337 10^3/uL (130-400); WHITE BLOOD COUNT 8.7 10^3/uL (4.3-11.0)
[2022-10-21 13:16] LABS: ALBUMIN 4.5 GM/DL (3.2-4.5); POTASSIUM 3.8 MMOL/L (3.6-5.0)
[2022-10-21 13:17] LABS: CALCIUM 9.2 MG/DL (8.5-10.1)
[2022-10-21 13:19] LABS: TOTAL PROTEIN 7.7 GM/DL (6.4-8.2)
[2022-10-21 13:20] LABS: BILIRUBIN,TOTAL 0.5 MG/DL (0.1-1.0)
[2022-10-21 13:22] LABS: CREATININE SERUM 0.73 MG/DL (0.60-1.30)
[2022-10-21 13:24] LABS: ERYTHROCYTE SEDIMENTATION RATE 4 MM/HR (0-20)
[2022-10-21 13:45] LABS: TSH (THYROID ANALYZER) 1.38 UIU/ML (0.35-4.94)
[2022-10-21] MEDS ORDERED: PRD10T PO (14:35)
[2022-10-21 14:40] VITALS: BP 122/94
== END 2022-10-21 14:40 | disposition home or self-care (01) ==
LOC: EDUNIT# 12:26 → ER 12:28
DX: R21 Rash and other nonspecific skin eruption (principal); M25.50 Pain in unspecified joint; F17.210 Nicotine dependence, cigarettes, uncomplicated; Z91.040 Latex allergy status
CPT/HCPCS: 36415; 80053; 84443; 84703; 85025; 85652; 86141; 86618; 86666; 86668; 86757